=== PATIENT | male | born 1990 | race Caucasian/White ===

== ENCOUNTER → 2017-06-19 | Outpatient (CLI) | payer BC ==
--- NOTE | 2017-06-19 10:19 | RADIOLOGY IMAGING REPORT ---
[place] [facility] [place] NAME: Ru Ibrahim : 1990 MR: [id number] V: [id number] EXAM DATE: ORDERING PHYSICIAN: GOLDIE LENZ TECHNOLOGIST: Location: [facility] [place] Patient: Ru Ibrahim : 1990 Visit/Account:[id number] Date of Sevice: 06/19/2017 EXAMINATION: Abdominal ultrasound complete HISTORY: Abdominal pain. COMPARISON: None. FINDINGS: Gallbladder: There are multiple tiny nonshadowing mobile echogenic foci within the gallbladder may re present cholesterol crystals, sludge or nonshadowing calculi. The gallbladder wall measures 2.3 mm i n thickness.. There Is a negative Avalos sign. Liver: Negative. Common duct: Normal measuring 3.8 mm. Pancreas: The visualized portion of the pancreas appears unremarkable. Details obscured by bowel gas Spleen: Normal in size and echogenicity measuring 13.4 cm in length. Kidneys: Normal in size and echogenicity, the right measures 11.2 cm in length, and the left 11.1 cm . No hydronephrosis. Upper abdominal aorta and IVC: Negative. Ascites: None. IMPRESSION: There are multiple tiny nonshadowing mobile echogenic foci within the gallbladder which may represent cholesterol crystals, sludge or nonshadowing calculi. There is however no evidence of gallbladder w all thickening, positive Avalos sign or biliary ductal dilatation Report Dictated By: Janice Zuniga MD at 06/19/2017 10:12 AM Report E-Signed By: Janice Zuniga MD at 06/19/2017 10:15 AM WSN:[id number]
== END ==
LOC: US 08:54
PROVIDERS: ATTEND Family Medicine
DX: K80.20 Calculus of gallbladder without cholecystitis without obstruction (principal)
CPT/HCPCS: 76700

== ENCOUNTER 2017-09-20 00:38 | Emergency (ER) | payer BC ==
--- NOTE | 2017-09-20 00:42 | ER Report ---
History and Physical Time Seen By MD: 00:42 HPI/ROS CHIEF COMPLAINT: Right abdominal pain HISTORY OF PRESENT ILLNESS: 26-year-old male presents with abdominal pain for 2 days. He notes right middle quadrant pain without radiation. He describes crampy dull pain with nausea and several episodes of vomiting. Patient states his kids brought home diarrhea from school 4-5 days ago. Patient notes nausea right now. He's had no blood in emesis or diarrhea. He denies fever or chills. Patient denies previous abdominal surgeries. REVIEW OF SYSTEMS: Respiratory: No cough, no dyspnea. Cardiovascular: No chest pain, no palpitations. Gastrointestinal: As above Musculoskeletal: No back pain. Allergies: Coded Allergies: Sulfa (Sulfonamide Antibiotics) (Verified Allergy, Unknown, 09/20/17) Home Meds Active Scripts Ondansetron (ZOFRAN ODT) 4 Mg Tab.rapdis, 4 MG PO every 6 hours Y for NAUSEA/ VOMITING, #12 TAB TAKE 1 TABLET BY MOUTH EVERY 12 HOURS Prov:ESTEFANI BRIZUELA DO 09/20/17 Reviewed Nurses Notes: Yes Old Medical Records Reviewed: Yes Hx Smoking: Yes Hx Substance Use Disorder: No Hx Alcohol Use: No Constitutional Vital Sign - Last 24 Hours 09/20/17 09/20/17 09/20/17 09/20/17 00:42 00:44 00:53 01:00 Temp 97.9 Pulse 63 63 Resp 16 B/P (MAP) 144/79 144/79 (100) 118/69 (85) Pulse Ox 95 O2 Delivery Room Air 09/20/17 09/20/17 09/20/17 09/20/17 01:08 01:23 01:30 01:38 Pulse 67 58 B/P (MAP) 121/70 (87) Pulse Ox 97 96 98 09/20/17 09/20/17 09/20/17 02:00 02:08 02:19 Pulse 69 B/P (MAP) 128/65 (86) 112/76 (88) Physical Exam General Appearance: The patient is alert, has no immediate need for airway protection and no current signs of toxicity. Vital signs stable, afebrile, pulse ox normal HEENT: Pupils equal and round no injection. TMs normal, oropharynx without redness or exudate Respiratory: Chest is non tender, lungs are clear to auscultation. Cardiac: regular rate and rhythm Gastrointestinal: Abdomen is soft, mild mid quadrant tenderness, no masses, bowel sounds normal. Musculoskeletal: Neck: Neck is supple and non tender. Extremities have full range of motion and are non tender. Skin: No rashes or lesions. DIFFERENTIAL DIAGNOSIS: After history and physical exam differential diagnosis was considered for abdominal pain including but not limited to appendicitis, cholecystitis, gastroenteritis, viral syndrome, food poisoning gastritis and urinary tract infection. Medical Decision Making Data Points Result Diagram: 09/20/17 01209/20/17 0120 Laboratory Hematology Test 09/20/17 00:42 09/20/17 01:20 Urine Color Yellow Urine Clarity Clear Urine pH 5.0 pH (4.8-9.5) Urine Specific [place] 1.030 Urine Protein Negative mg/dL (NEGATIVE) Urine Glucose (UA) Negative mg/dL (NEGATIVE) Urine Ketones Negative mg/dL (NEGATIVE) Urine Blood Negative (NEGATIVE) Urine Nitrite Negative (NEGATIVE) Urine Bilirubin Negative (NEGATIVE) Urine Urobilinogen 0.2 mg/dL (0.2-1.9) Urine Leukocyte Esterase Negative (NEGATIVE) Urine RBC 2 /HPF (0-2/HPF) Urine WBC 1 /HPF (0-5/HPF) Urine Squamous Epithelial Cells None /LPF (</=FEW) Urine Transitional Epithelial Cells Few /LPF (NONE-FEW) Urine Bacteria Negative /HPF (NONE-FEW) Urine Mucus Few /HPF (NONE-FEW) Red Blood Count 5.49 M/uL (4.00-5.60) Mean Corpuscular Volume 87.3 fL (80.0-96.0) Mean Corpuscular Hemoglobin 31.4 pg (26.0-33.0) Mean Corpuscular Hemoglobin Concent 35.9 g/dL (32.0-36.0) Red Cell Distribution Width 12.6 % (11.5-14.5) Mean Platelet Volume 8.8 fL (7.2-11.1) Neutrophils (%) (Auto) 64.5 % (39.4-72.5) Lymphocytes (%) (Auto) 25.4 % (17.6-49.6) Monocytes (%) (Auto) 6.0 % (4.1-12.4) Eosinophils (%) (Auto) 3.2 % (0.4-6.7) Basophils (%) (Auto) 0.9 % (0.3-1.4) Nucleated RBC Relative Count (auto) 0.1 /100WBC Neutrophils # (Auto) 6.4 K/uL (2.0-7.4) Lymphocytes # (Auto) 2.5 K/uL (1.3-3.6) Monocytes # (Auto) 0.6 K/uL (0.3-1.0) Eosinophils # (Auto) 0.3 K/uL (0.0-0.5) Basophils # (Auto) 0.1 K/uL (0.0-0.1) Nucleated RBC Absolute Count (auto) 0.01 K/uL Sodium Level 139 mmol/L (137-145) Potassium Level 3.1 mmol/L (3.5-5.0) Chloride Level 103 mmol/L (98-107) Carbon Dioxide Level 24 mmol/L (22-30) Blood Urea Nitrogen 12 mg/dl (9-21) Creatinine 1.00 mg/dl (0.66-1.25) Glomerular Filtration Rate Calc > 60.0 Random Glucose 114 mg/dl (75-110) Calcium Level 9.6 mg/dl (8.4-10.2) Total Bilirubin 0.6 mg/dl (0.2-1.3) Aspartate Amino Transf (AST/SGOT) 40 U/L (0-35) Alanine Aminotransferase (ALT/SGPT) 112 U/L (0-56) Alkaline Phosphatase 83 U/L (0-126) Total Protein 6.6 gm/dl (6.3-8.2) Albumin 3.9 g/dl (3.5-5.0) Amylase Level 44 U/L (0-110) Lipase 65 U/L (23-300) Chemistry Test 09/20/17 00:42 09/20/17 01:20 Urine Color Yellow Urine Clarity Clear Urine pH 5.0 pH (4.8-9.5) Urine Specific [place] 1.030 Urine Protein Negative mg/dL (NEGATIVE) Urine Glucose (UA) Negative mg/dL (NEGATIVE) Urine Ketones Negative mg/dL (NEGATIVE) Urine Blood Negative (NEGATIVE) Urine Nitrite Negative (NEGATIVE) Urine Bilirubin Negative (NEGATIVE) Urine Urobilinogen 0.2 mg/dL (0.2-1.9) Urine Leukocyte Esterase Negative (NEGATIVE) Urine RBC 2 /HPF (0-2/HPF) Urine WBC 1 /HPF (0-5/HPF) Urine Squamous Epithelial Cells None /LPF (</=FEW) Urine Transitional Epithelial Cells Few /LPF (NONE-FEW) Urine Bacteria Negative /HPF (NONE-FEW) Urine Mucus Few /HPF (NONE-FEW) White Blood Count 9.9 k/uL (4.5-11.0) Red Blood Count 5.49 M/uL (4.00-5.60) Hemoglobin 17.2 g/dL (14.0-18.0) Hematocrit 47.9 % (42.0-52.0) Mean Corpuscular Volume 87.3 fL (80.0-96.0) Mean Corpuscular Hemoglobin 31.4 pg (26.0-33.0) Mean Corpuscular Hemoglobin Concent 35.9 g/dL (32.0-36.0) Red Cell Distribution Width 12.6 % (11.5-14.5) Platelet Count 161 K/uL (150-450) Mean Platelet Volume 8.8 fL (7.2-11.1) Neutrophils (%) (Auto) 64.5 % (39.4-72.5) Lymphocytes (%) (Auto) 25.4 % (17.6-49.6) Monocytes (%) (Auto) 6.0 % (4.1-12.4) Eosinophils (%) (Auto) 3.2 % (0.4-6.7) Basophils (%) (Auto) 0.9 % (0.3-1.4) Nucleated RBC Relative Count (auto) 0.1 /100WBC Neutrophils # (Auto) 6.4 K/uL (2.0-7.4) Lymphocytes # (Auto) 2.5 K/uL (1.3-3.6) Monocytes # (Auto) 0.6 K/uL (0.3-1.0) Eosinophils # (Auto) 0.3 K/uL (0.0-0.5) Basophils # (Auto) 0.1 K/uL (0.0-0.1) Nucleated RBC Absolute Count (auto) 0.01 K/uL Glomerular Filtration Rate Calc > 60.0 Calcium Level 9.6 mg/dl (8.4-10.2) Total Bilirubin 0.6 mg/dl (0.2-1.3) Aspartate Amino Transf (AST/SGOT) 40 U/L (0-35) Alanine Aminotransferase (ALT/SGPT) 112 U/L (0-56) Alkaline Phosphatase 83 U/L (0-126) Total Protein 6.6 gm/dl (6.3-8.2) Albumin 3.9 g/dl (3.5-5.0) Amylase Level 44 U/L (0-110) Lipase 65 U/L (23-300) Urinalysis Test 09/20/17 00:42 Urine Color Yellow Urine Clarity Clear Urine pH 5.0 pH (4.8-9.5) Urine Specific [place] 1.030 Urine Protein Negative mg/dL (NEGATIVE) Urine Glucose (UA) Negative mg/dL (NEGATIVE) Urine Ketones Negative mg/dL (NEGATIVE) Urine Blood Negative (NEGATIVE) Urine Nitrite Negative (NEGATIVE) Urine Bilirubin Negative (NEGATIVE) Urine Urobilinogen 0.2 mg/dL (0.2-1.9) Urine Leukocyte Esterase Negative (NEGATIVE) Urine RBC 2 /HPF (0-2/HPF) Urine WBC 1 /HPF (0-5/HPF) Urine Squamous Epithelial Cells None /LPF (</=FEW) Urine Transitional Epithelial Cells Few /LPF (NONE-FEW) Urine Bacteria Negative /HPF (NONE-FEW) Urine Mucus Few /HPF (NONE-FEW) ED Course/Re-evaluation Clinical Indication for ER IV: Hydration, IV Access ED Course Patient was admitted to an examination room. H&P was done. The differential diagnoses was considered. Patient with abdominal pain in the right upper and right middle quadrant. Patient's been having diarrhea, which she contracted from his children. Likely viral gastroenteritis. He has persistent right upper quadrant pain and right middle quadrant pain. Patient's treated with IV fluids, IV Zofran and Toradol. Patient's diagnostic laboratory studies were normal. Results are discussed with the patient. Patient advised to conservative treatment plan of clear liquid diet, ibuprofen 600 mg 3 times a day. Patient was given a prescription for Zofran 4 mg nausea control. Decision to Disposition Date: September 20, 2017 Decision to Disposition Time: 01:13 Depart Departure Latest Vital Signs Vital Signs Date Time Temp Pulse Resp B/P (MAP) Pulse Ox O2 Delivery O2 Flow Rate FiO2 09/20/17 02:19 112/76 (88) 09/20/17 02:08 69 09/20/17 01:38 98 09/20/17 00:42 97.9 16 Room Air Impression: Primary Impression: Abdominal pain Additional Impressions: Gastroenteritis Hypokalemia Condition: Improved Disposition: HOME OR SELF-CARE Referrals: GOLDIE LENZ DO (PCP) New Scripts Ondansetron (ZOFRAN ODT) 4 Mg Tab.rapdis 4 MG PO every 6 hours Y for NAUSEA/VOMITING, #12 TAB TAKE 1 TABLET BY MOUTH EVERY 12 HOURS Prov: ESTEFANI BRIZUELA DO 09/20/17 Patient Instructions: Clear Liquid Diet (ED), Gastroenteritis (ED) Additional Instructions: Follow clear liquid diet for 24-48 hours. Then advance to the Take ibuprofen 200 mg 3 tablets 3 times a day with food You Zofran to control nausea and vomiting as needed. Follow-up with your primary care if unimproved in 3-5 days. Problem Qualifiers Primary Impression: Abdominal pain Abdominal location: right upper quadrant Qualified Codes: R10.11 - Right upper quadrant pain ESTEFANI BRIZUELA DO September 20, 2017 00:42
[2017-09-20] MEDS ORDERED: NS(*) 0.9% 1000 ML BAG 1,000 ML IV ONE (00:53)
[2017-09-20] MEDS ORDERED: ONDANSETRON 4 MG/2 ML VIAL IVP ONE (00:55)
[2017-09-20] MEDS ORDERED: KETOROLAC 30 MG/ML VIAL IVP ONE (00:55)
[2017-09-20 02:06] LABS: PLATELET COUNT, AUTOMATED 161 K/uL (150-450)
[2017-09-20 02:19] VITALS: BP 112/76
[2017-09-20] MEDS ORDERED: ONDANSETRON 4 MG ODT TH SL ONE (02:20)
[2017-09-20] MEDS ORDERED: ONDA4TAB PO (02:21)
== END 2017-09-20 02:26 | disposition home or self-care (01) ==
LOC: ER 00:45
DX: K52.9 Noninfective gastroenteritis and colitis, unspecified (principal); E87.6 Hypokalemia
CPT/HCPCS: 81001; 82150; 83690; 85025; 96361; 96374; 96375; 99284; J1885; J2405; J7030; S0119; 82040; 82247; 82310; 82374; 82435; 82565; 82947; 84075; 84132; 84155; 84295; 84450; 84460; 84520